=== PATIENT | male | born 1995 | race Two or more races ===

== ENCOUNTER 2021-11-01 13:21 | Emergency (ER) | payer SELFPAY | END 2021-11-01 14:36 | disposition home or self-care (01) | LOC: JD.ED 13:21 | DX: G44.219 Episodic tension-type headache, not intractable (principal); Z86.16 Personal history of COVID-19 | CPT/HCPCS: 99283 ==

== ENCOUNTER 2022-08-21 11:35 | Emergency (ER) | payer SELFPAY | END 2022-08-21 12:08 | disposition home or self-care (01) | LOC: JD.ED 11:35 | DX: K02.9 Dental caries, unspecified (principal); M54.12 Radiculopathy, cervical region; Z86.16 Personal history of COVID-19 | CPT/HCPCS: 99283 ==

== ENCOUNTER 2022-12-12 20:49 | Emergency (ER) | payer SELFPAY ==
[2022-12-12] MEDS ORDERED: Sodium Chloride 0.9% 1,000 ML IV ONE (21:08)
[2022-12-12 21:13] LABS: BASOPHILS ABSOLUTE AUTO 0.1 K/mm3 (0.0-0.2); BASOPHILS PERCENT AUTO 0.6 % (0.0-1.0); EOSINOPHILS ABSOLUTE AUTO 0.1 K/mm3 (0.0-0.4); EOSINOPHILS PERCENT AUTO 0.7 % (0.0-6.0); HEMATOCRIT 43.7 % (42.0-52.0); HEMOGLOBIN 15.4 gm/dl (14.0-18.0); IMMATURE GRAN ABSOLUTE AUTO 0.09 K/mm3 (0.00-0.05); IMMATURE GRAN PERCENT AUTO 0.9 % (0.0-0.4); LYMPHOCYTES ABSOLUTE AUTO 4.6 K/mm3 (1.0-4.8); LYMPHOCYTES PERCENT AUTO 46.3 % (24.0-44.0); MEAN CORPUSCULAR HEMOGLOBIN 30.9 pg (28.0-32.0); MEAN CORPUSCULAR HGB CONC 35.2 g/dl (32.0-36.0); MEAN CORPUSCULAR VOLUME 87.6 fl (83.0-99.0); MEAN PLATELET VOLUME 9.4 fl (9.4-12.4); MONOCYTES ABSOLUTE AUTO 0.7 K/mm3 (0.0-0.8); MONOCYTES PERCENT AUTO 7.4 % (0.0-8.0); NEUTROPHILS ABSOLUTE AUTO 4.4 K/mm3 (1.8-7.7); NEUTROPHILS PERCENT AUTO 44.1 % (41.0-71.0); PLATELET COUNT,PLT 263 K/mm3 (150-400); RED BLOOD CELL COUNT 4.99 M/mm3 (4.52-5.90); WHITE BLOOD CELL COUNT,WBC 9.95 K/mm3 (3.9-11.3)
[2022-12-12 21:36] LABS: A/G RATIO 1.1 (1-2); ALANINE AMINOTRANSFERASE,ALT 39 U/L (16-63); ALBUMIN 4.2 g/dl (3.4-5.0); ALKALINE PHOSPHATASE 87 U/L (46-116); ANION GAP 13.7 (5-15); ASPARTATE AMNIOTRANSFERASE,AST 32 U/L (15-37); BILIRUBIN TOTAL 0.3 mg/dL (0.2-1.0); BLOOD UREA NITROGEN,BUN 14 mg/dL (7-18); CALCIUM 9.3 mg/dL (8.5-10.1); CARBON DIOXIDE,CO2 26 mEq/L (21-32); CHLORIDE,CL 102 mEq/L (98-107); EST CRCL DRUG DOSING (CG) 113.56 mL/min; ESTIMATED GFR 105 mL/min (>60); GLUCOSE RANDOM 121 mg/dL (70-99); MAGNESIUM 1.9 mg/dL (1.8-2.4); PROTEIN TOTAL,TP 8.1 g/dl (6.4-8.2); SODIUM,NA 138 mEq/L (136-145)
[2022-12-12 21:37] LABS: POTASSIUM,K 3.7 mEq/L (3.5-5.1); TROPONIN I HIGH SENSITIVITY < 4 pg/mL (<=76)
== END 2022-12-12 21:49 | disposition home or self-care (01) ==
LOC: JD.ED 20:49
DX: R07.89 Other chest pain (principal); Z86.16 Personal history of COVID-19
CPT/HCPCS: 36415; 80053; 83735; 84484; 85025; 93005; 99285; J7030; 93010; 99283

== ENCOUNTER 2023-01-23 18:19 | Emergency (ER) | payer BC ==
[2023-01-23] MEDS ORDERED: Famotidine 20 MG Tab PO ONE (18:49)
[2023-01-23] MEDS ORDERED: Alum Hydrox/Mag Hydrox/Simeth 30 ML, Lidocaine 2% 15 ML PO ONE ×2 (18:49)
[2023-01-23 19:03] LABS: BASOPHILS PERCENT AUTO 0.5 % (0.0-1.0); EOSINOPHILS PERCENT AUTO 0.1 % (0.0-6.0); HEMATOCRIT 46.9 % (42.0-52.0); HEMOGLOBIN 16.4 gm/dl (14.0-18.0); IMMATURE GRAN ABSOLUTE AUTO 0.02 K/mm3 (0.00-0.05); IMMATURE GRAN PERCENT AUTO 0.2 % (0.0-0.4); LYMPHOCYTES ABSOLUTE AUTO 2.7 K/mm3 (1.0-4.8); LYMPHOCYTES PERCENT AUTO 31.2 % (24.0-44.0); MEAN CORPUSCULAR HEMOGLOBIN 30.8 pg (28.0-32.0); MEAN CORPUSCULAR VOLUME 88.2 fl (83.0-99.0); MEAN PLATELET VOLUME 9.4 fl (9.4-12.4); MONOCYTES ABSOLUTE AUTO 0.5 K/mm3 (0.0-0.8); MONOCYTES PERCENT AUTO 6.2 % (0.0-8.0); NEUTROPHILS ABSOLUTE AUTO 5.3 K/mm3 (1.8-7.7); NEUTROPHILS PERCENT AUTO 61.8 % (41.0-71.0); PLATELET COUNT,PLT 275 K/mm3 (150-400); RED BLOOD CELL COUNT 5.32 M/mm3 (4.52-5.90); WHITE BLOOD CELL COUNT,WBC 8.55 K/mm3 (3.9-11.3)
[2023-01-23 19:29] LABS: A/G RATIO 1.2 (1-2); ALBUMIN 4.4 g/dl (3.4-5.0); ANION GAP 13.6 (5-15); BILIRUBIN TOTAL 0.4 mg/dL (0.2-1.0); BUN/CREATININE RATIO 10.9 (14-18); CALCIUM 9.2 mg/dL (8.5-10.1); CREATININE 1.1 mg/dL (0.7-1.3); EST CRCL DRUG DOSING (CG) 103.23 mL/min; POTASSIUM,K 3.6 mEq/L (3.5-5.1); PROTEIN TOTAL,TP 8.2 g/dl (6.4-8.2)
[2023-01-23] MEDS ORDERED: Pantoprazole 40 MG Tab.CR PO ONE ×2 (19:55→20:15)
[2023-01-24] MEDS ORDERED: Pantoprazole 40 MG Tab.CR PO ONE ×2 (09:00→19:55)
== END 2023-01-23 20:54 | disposition home or self-care (01) ==
LOC: JD.ED 18:19
DX: K29.00 Acute gastritis without bleeding (principal)
CPT/HCPCS: 36415; 74018; 80053; 83690; 85025; 99284; A9270

== ENCOUNTER 2023-04-02 18:08 | Emergency (ER) | payer BC ==
[2023-04-02] MEDS ORDERED: Sodium Chloride 0.9% 10 ML Syringe FLUSH PRN (18:43)
[2023-04-02 19:13] LABS: BASOPHILS PERCENT AUTO 0.5 % (0.0-1.0); EOSINOPHILS PERCENT AUTO 0.5 % (0.0-6.0); HEMOGLOBIN 15.3 gm/dl (14.0-18.0); IMMATURE GRAN ABSOLUTE AUTO 0.02 K/mm3 (0.00-0.05); IMMATURE GRAN PERCENT AUTO 0.2 % (0.0-0.4); LYMPHOCYTES ABSOLUTE AUTO 3.1 K/mm3 (1.0-4.8); LYMPHOCYTES PERCENT AUTO 38.1 % (24.0-44.0); MEAN CORPUSCULAR HEMOGLOBIN 30.5 pg (28.0-32.0); MEAN CORPUSCULAR HGB CONC 34.8 g/dl (32.0-36.0); MEAN CORPUSCULAR VOLUME 87.8 fl (83.0-99.0); MEAN PLATELET VOLUME 9.7 fl (9.4-12.4); MONOCYTES ABSOLUTE AUTO 0.5 K/mm3 (0.0-0.8); MONOCYTES PERCENT AUTO 6.4 % (0.0-8.0); NEUTROPHILS ABSOLUTE AUTO 4.4 K/mm3 (1.8-7.7); NEUTROPHILS PERCENT AUTO 54.3 % (41.0-71.0); PLATELET COUNT,PLT 279 K/mm3 (150-400); RED BLOOD CELL COUNT 5.01 M/mm3 (4.52-5.90); WHITE BLOOD CELL COUNT,WBC 8.18 K/mm3 (3.9-11.3)
[2023-04-02 19:41] LABS: A/G RATIO 1.1 (1-2); ALANINE AMINOTRANSFERASE,ALT 29 U/L (16-63); ALKALINE PHOSPHATASE 83 U/L (46-116); ANION GAP 12.8 (5-15); ASPARTATE AMNIOTRANSFERASE,AST 9 U/L (15-37); BILIRUBIN TOTAL 0.4 mg/dL (0.2-1.0); BLOOD UREA NITROGEN,BUN 17 mg/dL (7-18); BUN/CREATININE RATIO 15.5 (14-18); CALCIUM 9.1 mg/dL (8.5-10.1); CARBON DIOXIDE,CO2 26 mEq/L (21-32); CHLORIDE,CL 103 mEq/L (98-107); CREATININE 1.1 mg/dL (0.7-1.3); EST CRCL DRUG DOSING (CG) 103.23 mL/min; ESTIMATED GFR 94 mL/min (>60); PROTEIN TOTAL,TP 7.6 g/dl (6.4-8.2); SODIUM,NA 138 mEq/L (136-145); TSH 1.007 uIU/mL (0.358-3.74)
[2023-04-02 19:43] LABS: TROPONIN I HIGH SENSITIVITY < 4 pg/mL (<=76)
[2023-04-02 19:44] LABS: POTASSIUM,K 3.8 mEq/L (3.5-5.1)
[2023-04-02 19:45] LABS: GLUCOSE RANDOM 115 mg/dL (70-99)
== END 2023-04-02 20:30 | disposition home or self-care (01) ==
LOC: JD.ED 18:08
DX: R07.89 Other chest pain (principal); Z86.16 Personal history of COVID-19
CPT/HCPCS: 36415; 71045; 80053; 83735; 84443; 84484; 85025; 93005; 99285; J3490

== ENCOUNTER 2023-08-05 07:27 | Emergency (ER) | payer SELFPAY ==
[2023-08-05] MEDS: Sodium Chloride 0.9% 1,000 ML IV ONE (08:13)
[2023-08-05 08:19] LABS: BASOPHILS PERCENT AUTO 0.4 % (0.0-1.0); EOSINOPHILS PERCENT AUTO 0.4 % (0.0-6.0); HEMATOCRIT 45.3 % (42.0-52.0); HEMOGLOBIN 15.9 gm/dl (14.0-18.0); IMMATURE GRAN ABSOLUTE AUTO 0.04 K/mm3 (0.00-0.05); IMMATURE GRAN PERCENT AUTO 0.5 % (0.0-0.4); LYMPHOCYTES ABSOLUTE AUTO 2.9 K/mm3 (1.0-4.8); LYMPHOCYTES PERCENT AUTO 40.2 % (24.0-44.0); MEAN CORPUSCULAR HEMOGLOBIN 30.1 pg (28.0-32.0); MEAN CORPUSCULAR HGB CONC 35.1 g/dl (32.0-36.0); MEAN CORPUSCULAR VOLUME 85.6 fl (83.0-99.0); MEAN PLATELET VOLUME 9.5 fl (9.4-12.4); MONOCYTES ABSOLUTE AUTO 0.4 K/mm3 (0.0-0.8); MONOCYTES PERCENT AUTO 5.8 % (0.0-8.0); NEUTROPHILS ABSOLUTE AUTO 3.8 K/mm3 (1.8-7.7); NEUTROPHILS PERCENT AUTO 52.7 % (41.0-71.0); PLATELET COUNT,PLT 247 K/mm3 (150-400); RED BLOOD CELL COUNT 5.29 M/mm3 (4.52-5.90); WHITE BLOOD CELL COUNT,WBC 7.28 K/mm3 (3.9-11.3)
[2023-08-05 08:49] LABS: A/G RATIO 1.2 (1-2); ALANINE AMINOTRANSFERASE,ALT 34 U/L (16-63); ALBUMIN 4.2 g/dl (3.4-5.0); ALKALINE PHOSPHATASE 84 U/L (46-116); ANION GAP 16.7 (5-15); ASPARTATE AMNIOTRANSFERASE,AST 21 U/L (15-37); BILIRUBIN TOTAL 0.3 mg/dL (0.2-1.0); BLOOD UREA NITROGEN,BUN 10 mg/dL (7-18); CALCIUM 8.8 mg/dL (8.5-10.1); CARBON DIOXIDE,CO2 26 mEq/L (21-32); CHLORIDE,CL 101 mEq/L (98-107); EST CRCL DRUG DOSING (CG) 112.54 mL/min; ESTIMATED GFR 104 mL/min (>60); ETHANOL BLOOD MEDICAL 0.01 gm% (0.00); GLUCOSE RANDOM 93 mg/dL (70-99); POTASSIUM,K 3.7 mEq/L (3.5-5.1); PROTEIN TOTAL,TP 7.7 g/dl (6.4-8.2); SODIUM,NA 140 mEq/L (136-145)
[2023-08-05 08:50] LABS: TROPONIN I HIGH SENSITIVITY < 4 pg/mL (<=76)
== END 2023-08-05 08:32 | disposition home or self-care (01) ==
LOC: JD.ED 07:27
DX: F10.120 Alcohol abuse with intoxication, uncomplicated (principal); F41.9 Anxiety disorder, unspecified; Y90.9 Presence of alcohol in blood, level not specified
CPT/HCPCS: 36415; 80053; 80307; 84484; 85025; 96360; 99284; J7030; 93010; 99282